=== PATIENT | female | born 1955 | race Caucasian/White ===

== ENCOUNTER → 2019-12-16 09:00 | Outpatient (BNVA) | payer MEDICARE, SELFPAY | PROVIDERS: Family Provider Internal Medicine; PCP Internal Medicine; Visit Provider Internal Medicine | DX: Z00.00 Encounter for general adult medical examination without abnormal findings (principal); E78.5 Hyperlipidemia, unspecified; M25.572 Pain in left ankle and joints of left foot; E03.9 Hypothyroidism, unspecified; E04.2 Nontoxic multinodular goiter; K75.81 Nonalcoholic steatohepatitis (NASH); I10 Essential (primary) hypertension; F32.9 Major depressive disorder, single episode, unspecified; R73.9 Hyperglycemia, unspecified | CPT/HCPCS: 80053; 80061; 83036; 84443; 85025 ==

== ENCOUNTER 2019-12-27 14:27 | Outpatient (CLI) | payer MEDICARE, SELFPAY ==
--- NOTE | 2019-12-27 14:37 | US_ITS ---
WS: [id number] THYROID ULTRASOUND REASON FOR EXAM: MULTINODULAR GOITER TECHNIQUE: Grayscale and Doppler ultrasound examination of the thyroid gland. FINDINGS: RIGHT: Right thyroid gland measures 6.3 cm x 2.5 cm x 2.3 cm. Right thyroid volume equals 19.0 ccm3. A parti ally calcified mass is seen in the right lobe of the thyroid measures 7.67 mm. LEFT: Left thyroid gland measures 5.9 cm x 1.3 cm x 1.4 cm. Left thyroid volume equals 5.8 ccm3. A lesion a long the periphery of the left upper lobe measures 0.77 5.31 x 0.96 cm appears to be well encapsulate d and consistent with a benign adenoma. An additional lesion measures 0.69 x 0.47 x 0.74 cm the midpo rtion of the left lobe this is a well encapsulated shows no calcification or gracilis There is also a hypodense lesion appears to be almost completely cystic in the lower pole of the left lobe measures 0.66 x 0.37 x 0.57 cm. Thyroid isthmus: 0.3 mm. US/US thyroid [id number] IMPRESSION: Goiter changes of both lobes of the thyroid The right lobe shows a calcified mass which is somewhat this is suspicious and we recommend scanning in 3 months to rule out aggressive dense. The left lobe shows multiple adenomas and a benign cysts.
== END 2019-12-27 14:28 | disposition home or self-care (01) ==
LOC: RAD 14:31
PROVIDERS: Family Provider Internal Medicine; PCP Internal Medicine; Visit Provider Internal Medicine
DX: E04.2 Nontoxic multinodular goiter (principal); E07.89 Other specified disorders of thyroid
CPT/HCPCS: 76536

== ENCOUNTER 2020-02-07 08:45 | Outpatient (CLI) | payer MEDICARE, SELFPAY ==
--- NOTE | 2020-02-07 08:55 | MM_ITS ---
WS: [id number] Bilateral screening digital mammogram, 02/07/2020 Clinical Data: SCREENING Comparison: 12/22/2018, 10/21/2017, 10/08/2016, 10/03/2015, 03/08/2015, 02/03/2015, 01/10/2015, 06/30/2012, , 06/28/2010, 04/14/2009, 10/12/2007, 08/29/2006. Findings: The breast parenchymal pattern shows heterogeneous density No spiculated masses or clustered calcific ations are seen. There are no secondary signs of carcinoma. MM/[id number] Impression: 1. Negative bilateral mammogram unchanged. 2. Recommend annual screening mammograms. BIRADS: 1-Negative FOLLOW UP: 1 Year Follow-up The CAD warehouse checker was used.
== END 2020-02-07 08:46 | disposition home or self-care (01) ==
PROVIDERS: PCP Internal Medicine; Visit Provider Internal Medicine
DX: Z12.31 Encounter for screening mammogram for malignant neoplasm of breast (principal)
CPT/HCPCS: 77067

== ENCOUNTER 2020-03-28 13:49 | Outpatient (CLI) | payer MEDICARE, SELFPAY ==
--- NOTE | 2020-03-28 14:15 | US_ITS ---
WS: [id number] THYROID ULTRASOUND HISTORY: Follow-up multinodular goiter COMPARISON: 12/27/2019 and 11/09/2018 Right lobe: 5.5 cm x 3.2 cm x 2.1 cm. Volume: 19.1 cm3. Enlarged heterogeneous gland. Hyperechoic nodule with central coarse calcification continues to slowl y increase in size. This hypoechoic nodule measures 3.0 x 1.9 x 2.7 cm. This nodule has undergone ana maria or biopsy. There are additional subcentimeter hypoechoic nodules throughout the gland. Left lobe: 5.0 cm x 1.3 cm x 1.2 cm. Volume: 4.1 cm3. Multiple small hypoechoic nodules. No increasing size of nodule. Some of these are colloid cyst. Isthmus: 0.3 cm. US/US thyroid [id number] IMPRESSION: Continued increase in size of large RIGHT thyroid nodule now measuring 3.0 x 1. 9 x 2.7 cm. This nodule has undergone prior biopsy. Due to the continued increase in size consider surgical removal for evaluation of the entire nodule.
== END 2020-03-28 13:50 | disposition home or self-care (01) ==
LOC: RAD 13:53
PROVIDERS: PCP Internal Medicine; Visit Provider Internal Medicine
DX: R94.6 Abnormal results of thyroid function studies (principal); E04.1 Nontoxic single thyroid nodule
CPT/HCPCS: 76536

== ENCOUNTER → 2021-05-08 10:59 | Outpatient (BNVA) | payer MEDICARE, SELFPAY | PROVIDERS: PCP Internal Medicine; Visit Provider Internal Medicine | DX: E78.5 Hyperlipidemia, unspecified (principal); Z00.00 Encounter for general adult medical examination without abnormal findings; E04.2 Nontoxic multinodular goiter; I10 Essential (primary) hypertension; R94.6 Abnormal results of thyroid function studies; Z12.11 Encounter for screening for malignant neoplasm of colon; Z01.812 Encounter for preprocedural laboratory examination | CPT/HCPCS: 80053; 80061; 84443; 85025 ==

== ENCOUNTER → 2021-05-22 10:16 | Outpatient (BNVA) | payer MEDICARE, SELFPAY | PROVIDERS: PCP Internal Medicine; Visit Provider Internal Medicine | DX: E78.5 Hyperlipidemia, unspecified (principal); Z01.812 Encounter for preprocedural laboratory examination | CPT/HCPCS: 87635 ==

== ENCOUNTER 2021-05-24 07:43 | Outpatient (CLI) | payer MEDICARE, SELFPAY ==
--- NOTE | 2021-05-24 07:59 | MM_ITS ---
WS: [id number] BILATERAL DIGITAL SCREENING MAMMOGRAPHY WITH CAD CLINICAL INFORMATION: SCREENING HISTORY: Screening mammogram. No current complaints. COMPARISON: February 07, 2020 TECHNIQUE: Bilateral CC and MLO views. FINDINGS: Scattered fibroglandular densities bilaterally. A few punctate calcifications. Calcified nodule right breast likely fibroadenoma. No suspicious focal mass, asymmetry, calcifications, or architectural di stortion. No evidence of malignancy. MM/[id number] IMPRESSION: BI-RADS: 2-Benign FOLLOW UP: 1 Year Follow-up Recommend return to annual screening mammography.
== END 2021-05-24 07:44 | disposition home or self-care (01) ==
LOC: RADSHAW 07:48
PROVIDERS: PCP Internal Medicine; Visit Provider Internal Medicine
DX: Z12.31 Encounter for screening mammogram for malignant neoplasm of breast (principal)
CPT/HCPCS: 77067

== ENCOUNTER 2021-05-28 05:46 | Day surgery (SDC) | payer MEDICARE, SELFPAY ==
[2021-05-24 12:49] VITALS: BMI 29.5
[2021-05-28 06:08] VITALS: BP 151/79; PULSE 75; RESP 18; TEMP 36.1; O2SAT 100
[2021-05-28] MEDS: sodium chloride 0.9% 1,000 ML 30 ML IV (06:25)
--- NOTE | 2021-05-28 06:42 | ANES.PREANE2 ---
Pre-Anesthetic Assessment Pre-Anesthetic Assessment: Height/Weight: Height 1.75 m Weight 90.718 kg Temp Pulse Resp BP Pulse Ox 97 F L 75 18 151/79 100 05/28/21 06:08 05/28/21 06:08 05/28/21 06:08 05/28/21 06:08 05/28/21 06:08 Preop Diagnosis: Screen Proposed Procedure: Operation Date: 05/28/21 07:00 Proposed Procedures p Colonoscopy g0121 z12.11(Not Applicable) - Kwadwo Alan MD Was Beta Yadi taken within 24 hours: N/A Was Clonidine taken within 24 hours: N/A Last intake: Intake Last Liquid Date 05/27/21 Last Liquid Time 22:00 Last Solid Date 05/26/21 Last Solid Time 18:00 Social: Social History: No alcohol and No tobacco Exam: Pre-Anes Outpt Exam: alert, oriented x 3 and regular rate & rhythm Airway: Submandibular: WNL Cervical ROM: WNL MP: 1 Dentition: Full History/ROS: No significant history except as noted Pulmonary: Pulmonary: None reported CV/HEM: CV/HEM: HTN : : None reported Hepatic: Hepatic: None reported GI: GI: GERD Metabolic: Metabolic: None reported Musc/skel: Musc/skel: None reported Neuropsych: Neuropsych: None reported Anesthetic Plan: ASA status: 2 Anesthesia: Anesthesia Evaluation and MAC Risk of > 500 ml blood loss (7ml/kg in children): No Meds/Allergies Current Medications: Current Medications Generic Name Dose Route Start Last Admin Trade Name Freq PRN Reason Stop Dose Admin Sodium Chloride 1,000 mls @ 30 ml s/hr 05/28/21 06:00 05/28/21 06:25 Sodium Chloride 0.9% IV 05/29/21 05:59 30 mls/hr .Q24H ZAIRE Administration PFSH Anesthesia PFSH: Medical History DR-inhibitor cough Depression Hypertension Tinnitus Surgical History History of hysterectomy Family History Father Clotting disorder Mother Diabetes Hypertension Social History Smoking and tobacco status: never smoked Alcohol intake: never Household members: spouse Housing: House Marital status: History of recent travel: No Data Anesthesia Cardiac Studies: No Data to Display
--- NOTE | 2021-05-28 07:08 | P.HP_ITS ---
Same Day Surgery H&P Indication for Procedure/HPI DATE OF PROCEDURE: May 28, 2021 CHIEF COMPLAINT/INDICATIONFOR SURGICAL PROCEDURE: Screening PREOP DIAGNOSIS: Screen PLANNED PROCEDRUE: Operation Date: 05/28/21 07:00 Proposed Procedures p Colonoscopy g0121 z12.11(Not Applicable) - Kwadwo Alan MD Medications/Allergies* Home Medications Medication Instructions Recorded Confirmed Type aspirin 81 mg tablet,delayed 81 mg PO DAILY 06/29/20 05/24/21 History release esomeprazole magnesium 20 mg 20 mg PO DAILY 06/29/20 05/24/21 History capsule,delayed release kppwtphw-osjtmjd-fahm-lutein tablet 8 tab PO DAILY tab 06/29/20 05/24/21 History omega 4-rqn-dnt-fish oil 250 500 cap PO DAILY cap 06/29/20 05/24/21 History mg-500 mg-1,000 mg capsule calcium carbonate-vitamin D3 500 tab PO DAILY 05/24/21 05/24/21 History [Calcium 500 With D] meloxicam 15 mg PO PRN 05/24/21 05/24/21 History Allergies/Adverse Reactions Allergy/AdvReac Type Severity Reaction Status Date / Time aspirin [From Aggrenox] Allergy Intermediate intensify Verified 05/08/21 09:08 light and sound dipyridamole [From Aggrenox] Allergy Intermediate intensify Verified 05/08/21 09:08 light and sound Current Medications: Generic Name Dose Route Start Last Admin Trade Name Freq PRN Reason Stop Dose Admin Sodium Chloride 1,000 mls @ 30 mls/hr 05/28/21 06:00 05/28/21 06:25 Sodium Chloride 0.9% IV 05/29/21 05:59 30 mls/hr .Q24H ZAIRE Administration Pertinent History/Comorbid Conditions* Medical History (Updated 11/06/20 @ 15:21 by Kwadwo Alan MD) RD-inhibitor cough Depression Hypertension Tinnitus Surgical History (Updated 12/16/19 @ 09:58 by Kwadwo Alan MD) History of hysterectomy Family History (Updated 12/16/19 @ 08:49 by Charlotte Avila LPN) Diabetes Mother Clotting disorder Father Hypertension Mother Social History Smoking and tobacco status: never smoked Alcohol intake: never Household members: spouse Housing: House Marital status: History of recent travel: No Pertinent Exam Findings alert, oriented x 3, clear to auscultation bilaterally, regular rate & rhythm, operative site marked and procedure specific exam findings Recommendations Surgery/Procedure today Coding Level of Care Code Acute Senior Linux Engineer for Laura Mike
[2021-05-28 07:21] VITALS: BP 99/63; PULSE 72; RESP 16; TEMP 36.1; O2SAT 99
[2021-05-28 07:33] VITALS: BP 125/70; PULSE 65; RESP 16; O2SAT 96
--- NOTE | 2021-05-28 18:50 | ANE.PACU2 ---
Inpatient post-anesthesia follow up: Airway intact: Yes Vital signs: Temperature 97 F Pulse Rate 65 Respiratory Rate 16 Blood Pressure 125/70 Pulse Oximetry 96 Oxygen Delivery Me thod Room Air Oxygen Flow Rate Fraction of Inspir ed Oxygen Hydration adequate: Yes Nausea and vomiting: No Pain level: 2 Mental status: Baseline
== END 2021-05-28 07:54 | disposition home or self-care (01) ==
PROVIDERS: PCP Internal Medicine; Visit Provider Internal Medicine
PROC: 0DJD8ZZ Inspection of Lower Intestinal Tract, Via Natural or Artificial Opening Endoscopic (ICD-10-PCS; CPT 45378; principal; 2021-05-28 07:00)
DX: Z12.11 Encounter for screening for malignant neoplasm of colon (principal); I10 Essential (primary) hypertension; F32.A Depression, unspecified; Z79.82 Long term (current) use of aspirin; Z82.49 Family history of ischemic heart disease and other diseases of the circulatory system
CPT/HCPCS: 96360; G0121; J2704; J7030

== ENCOUNTER 2022-06-17 08:00 | Outpatient (CLI) | payer MEDICARE, SELFPAY ==
--- NOTE | 2022-06-17 08:10 | MM_ITS ---
WS: [id number] BILATERAL SCREENING DIGITAL TOMOSYNTHESIS MAMMOGRAM WITH CAD HISTORY: SCREENING COMPARISON: 05/16/2021, 02/07/2020 and 12/22/2018 Bilateral CC and MLO views with tomosynthesis and synthetic mammography submitted. Computer aided det ection analyzed. Breast composition: There are scattered areas of fibroglandular density. No suspicious masses, microc alcifications or architectural distortion. Nodules, asymmetries and calcifications within each breast are stable. MM/[place] [id number] IMPRESSION: BI-RADS: 2-Benign FOLLOW UP: 1 Year Follow-up
== END 2022-06-17 08:01 | disposition home or self-care (01) ==
LOC: RAD 08:00
PROVIDERS: PCP Family Medicine; Visit Provider Family Medicine
DX: Z12.31 Encounter for screening mammogram for malignant neoplasm of breast (principal)
CPT/HCPCS: 77063; 77067

== ENCOUNTER 2024-05-03 08:54 | Outpatient (CLI) | payer MEDICARE, SELFPAY ==
--- NOTE | 2024-05-03 09:02 | MM_ITS ---
WS: [id number] SCREENING DIGITAL BREAST TOMOSYNTHESIS MAMMOGRAM WITH CAD HISTORY: SCREENING COMPARISON: 06/17/2022, 05/24/2021 Bilateral CC and MLO with tomosynthesis and synthetic mammography submitted. Computer aided detection analyzed. Breast composition: There are scattered areas of fibroglandular density. New well-circumscribed mass of increased density in the posterior RIGHT breast central to the nipple measuring 5 x 6 x 4 mm. The remaining calcifications and masses are stable scattered throughout each breast. No distortion. MM/MM scr tomosynthesis [id number] IMPRESSION: BI-RADS: 0 - Incomplete: Need additional imaging evaluation. FOLLOW UP: Need Additional Imaging Recommendation: RIGHT breast ultrasound, limited posterior RIGHT breast central to the nipple toward 6:00.
== END 2024-05-03 08:55 | disposition home or self-care (01) ==
LOC: RAD 08:56
PROVIDERS: PCP Family Medicine; Visit Provider Family Medicine
DX: Z12.31 Encounter for screening mammogram for malignant neoplasm of breast (principal)
CPT/HCPCS: 77063; 77067

== ENCOUNTER 2024-05-11 15:14 | Outpatient (CLI) | payer MEDICARE, SELFPAY ==
--- NOTE | 2024-05-11 15:17 | US_ITS ---
WS: [id number] ULTRASOUND RIGHT BREAST HISTORY: ABNORMAL MAMMOGRAM COMPARISON: 05/03/2024 TECHNIQUE: 2-D and Doppler. Hypoechoic mass at 6:00, 2 cm from the posteriorly measures 0.4 x 0.5 x 0.6 cm. This is likely a smal l cyst. Difficult to clean out the echoes due to its deep location. There is additional shadowing fro m posterior. Real-time observation demonstrated no mass. US/US breast RT limited* [id number] IMPRESSION: BI-RADS: 3- Probably Benign FOLLOW-UP: 6 Month Follow-up Favor the mass is probably a small cyst but difficult to completely clear of ec hoes due to its posterior position. Recommend 6-month RIGHT breast ultrasound f ollow-up.
== END 2024-05-11 15:15 | disposition home or self-care (01) ==
LOC: RAD 15:16
PROVIDERS: PCP Family Medicine; Visit Provider Family Medicine
DX: R92.2 Inconclusive mammogram (principal); N63.14 Unspecified lump in the right breast, lower inner quadrant
CPT/HCPCS: 76642

== ENCOUNTER 2024-11-15 10:45 | Outpatient (CLI) | payer MEDICARE, SELFPAY ==
--- NOTE | 2024-11-15 10:48 | US_ITS ---
WS: [id number] Exam: US breast RT limited* [id number] Date/Time of Exam: 11/15/2024 10:49 AM Reason For Exam: 6 month follow up Comparison 05/11/2024. Regional ultrasound of the 6 o'clock position of the RIGHT breast is performed. Again noted is a small cyst at the 6 o'clock position 2 cm from the nipple. The cyst measures 0.3 x 0.2 x 0.3 cm. No change since the previous exam. There are no solid masses or nodules identified in this region. Recommendations: Continued yearly screening mammography. US/US breast RT limited* [id number] IMPRESSION: 1. Stable appearing small cyst in the RIGHT breast at the 6 o'clock position as discussed above. BI-RADS Category 2.
== END 2024-11-15 10:46 | disposition home or self-care (01) ==
LOC: RAD 10:47
PROVIDERS: PCP Family Medicine; Visit Provider Family Medicine
DX: N60.01 Solitary cyst of right breast (principal)
CPT/HCPCS: 76642